=== PATIENT | female | born 1970 | race African-American/Black ===

== ENCOUNTER 2018-05-11 20:18 | Emergency (ER) | payer MEDICAID, OTHER ==
[~2018-05-11] VITALS: Ht 162.6 cm; Wt 95.7 kg
[2018-05-11 20:30] VITALS: BP 154/90
--- NOTE | 2018-05-11 20:30 | NUR ---
ED Nurse Note: patient walked in with family member fro home, complaining of paih in her right shoulder. per patient she fell on Saturday, and since today morning pain got worse. patient can barely lift her arm. AAO x4, skin is dry, intact, warm to touch. VSS at this time.
--- NOTE | 2018-05-11 20:35 | Emergency Room Report ---
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 Allergies: Coded Allergies: No Known Allergies (Unverified , 08/25/13) Patient History Past Medical History: see triage record Pertinent Family History: none Last Menstrual Period: 04/11/18 Reviewed Nursing Documentation: PMH: Agreed; PSxH: Agreed Nursing Documentation-PMH Past Medical History: No History, Except For Hx Hypertension: Yes Review of Systems All Other Systems: negative except mentioned in HPI Physical Exam Vital Signs Date Time Temp Pulse Resp B/P (MAP) Pulse Ox O2 Delivery O2 Flow Rate FiO2 05/11/18 20:19 98.2 80 19 154/90 99 Room Air Sp02 EP Interpretation: reviewed, normal General Appearance: well appearing, no apparent distress Head: normocephalic, atraumatic Eyes: bilateral eye PERRL, bilateral eye EOMI ENT: hearing grossly normal, normal pharynx Neck: supple Respiratory: lungs clear, no respiratory distress, no retraction Cardiovascular #1: regular rate, rhythm Gastrointestinal: non tender Musculoskeletal: other - Some tenderness palpable to the anterior right shoulder no obvious swelling or edema, patient has difficulty and pain with flexion of the shoulder Neurologic: alert, oriented x3, responsive Skin: normal color, no rash Lymphatic: no adenopathy Medical Decision Making Diagnostic Impression: Primary Impression: Shoulder sprain ER Course Given the patient's discomfort since Saturday x-ray imaging was obtained no obvious acute pathology is seen There is some questionable subacute versus chronic changes Patient is able to have close outpatient follow-up did not require any other splint Other X-Ray Diagnostic Results Other X-Ray Diagnostic Results : X-Ray ordered: Right shoulder # of Views/Limited Vs Complete: 3 View Indication: Pain EP Interpretation: Yes Interpretation: no dislocation, no soft tissue swelling, no fractures - Questionable changes laterally acromial Impression: No acute disease Electronically Signed by: Patito Cabrera DO Last Vital Signs Date Time Temp Pulse Resp B/P (MAP) Pulse Ox O2 Delivery O2 Flow Rate FiO2 05/11/18 20:30 98.2 19 154/90 99 Room Air 05/11/18 20:19 80 Status: improved Disposition: HOME, SELF-CARE Condition: Improved Scripts Ibuprofen* (MOTRIN*) 600 Mg Tablet 600 MG ORAL Q8H PRN for For Pain, #20 TAB 0 Refills Prov: Patito Cabrera DO 05/11/18 Additional Instructions: Patient is provided with the discharge instructions notified to follow up with primary doctor in the next 2-3 days otherwise return to the er with any worsening symptoms. Please note that this report is being documented using [employer] technology. This can lead to erroneous entry secondary to incorrect interpretation by the dictating instrument. Patito Cabrera DO May 11, 2018 20:35
[2018-05-11] MEDS ORDERED: IBUPROFEN600 MG ORAL (21:00)
--- NOTE | 2018-05-11 21:08 | NUR ---
applyedED Nurse Note: Rihgt arm sling was applied
[2018-05-11 21:12] VITALS: BP 145/78
--- NOTE | 2018-05-11 21:14 | NUR ---
ED Nurse Note: Pt cleared by health care Provider for discharge. DC instructions/prescription was given and explained to pt and verbalized understanding of teachings. All medical deviecs such as ID band removed. Pt is AAO x4, ambulatory and left with all personal belongings.
== END 2018-05-11 21:10 | disposition home or self-care (01) ==
LOC: EMR 20:55
DX: S43.401A Unspecified sprain of right shoulder joint, initial encounter (principal); W01.0XXA Fall on same level from slipping, tripping and stumbling without subsequent striking against object, initial encounter; Y92.89 Other specified places as the place of occurrence of the external cause; I10 Essential (primary) hypertension
CPT/HCPCS: 99283

== ENCOUNTER 2019-04-05 20:43 | Emergency (ER) | payer OTHER ==
[~2019-04-05] VITALS: Ht 162.6 cm; Wt 90.7 kg
[~2019-04-05 20:43] MED LIST: IBUPROFEN600 MG ORAL
[2019-04-05] MEDS ORDERED: HYDROCHLOROTHIA25 MG ORAL (21:36)
[2019-04-05] MEDS ORDERED: TERBINAFINE HC250 MG PO (21:36)
[2019-04-05 21:40] VITALS: BP 188/97
--- NOTE | 2019-04-05 21:40 | NUR ---
ED Nurse Note: Pt ambulated into ed from homoe with daughter. Pt CO rash on left flank that radiates to medial left abdomen. Rash resembles various sized blisters, pain 9/10. Pt reports recently taking lamasil for fungal infection of feet. PT denies allergies to medication, fever, n/v, body aches, chills recently. Pt reports chronic hx of HTN and denies taking BP medications today. BP upon assessment 188/96, ERMD aware. Awaiting ERMD at bedside. Urine collected, sent to lab.
--- NOTE | 2019-04-05 22:25 | NUR ---
ED Nurse Note: ERMD at bedside
--- NOTE | 2019-04-05 22:35 | NUR ---
ED Nurse Note: ERMD at bedside
[2019-04-05 22:38] VITALS: BP 179/91
--- NOTE | 2019-04-05 22:42 | NUR ---
ED Nurse Note: Awaiting discharge orders; pt assessed by 2 ERMDs and cleared for discharge on contact precautions and instructed to avoid populations of very young, very old, and unvaccinated.
[2019-04-05] MEDS ORDERED: ACYCLOVIR800 MG ORAL (22:52)
[2019-04-05] MEDS ORDERED: GABAPENTIN100 MG ORAL (22:52)
[2019-04-05 23:00] VITALS: BP 179/91
--- NOTE | 2019-04-05 23:00 | NUR ---
ER DISCHARGE NOTE: Patient is cleared to be discharged home per ERMD, pt is aox4, on room air, with stable vital signs. pt was given dc and prescription instructions, pt was able to verbalize understanding, pt id band removed. pt is able to ambulate with steady gait. pt took all belongings.
--- NOTE | 2019-04-06 02:45 | Emergency Room Report ---
History of Present Illness General Chief Complaint: Skin Rash/Abscess Source: Patient Present Illness HPI 49-year-old female presents ED for evaluation. The rash x1 week. Localized to left side abdomen radiating to the back. Burning, 7 out of 10. States prior to onset of rash there was burning discomfort to that area. Denies fevers or chills. Denies recent travel or sick contacts. No other aggravating relieving factors. Denies any other associated symptoms Allergies: Coded Allergies: No Known Allergies (Unverified , 08/25/13) Patient History Past Medical History: HTN Past Surgical History: none Pertinent Family History: none Social History: Denies: smoking, alcohol use, drug use Last Menstrual Period: 03/13/19 Now: No Immunizations: UTD Reviewed Nursing Documentation: PMH: Agreed; PSxH: Agreed Nursing Documentation-PMH Past Medical History: No History, Except For Hx Hypertension: Yes Review of Systems All Other Systems: negative except mentioned in HPI Physical Exam Vital Signs Date Time Temp Pulse Resp B/P (MAP) Pulse Ox O2 Delivery O2 Flow Rate FiO2 04/05/19 21:30 98.8 102 14 192/114 (140) 98 Room Air Sp02 EP Interpretation: reviewed, normal General Appearance: no apparent distress, alert, GCS 15, non-toxic Head: normocephalic, atraumatic Eyes: bilateral eye normal inspection, bilateral eye PERRL ENT: normal ENT inspection Neck: normal inspection Respiratory: normal inspection Cardiovascular #1: normal inspection Gastrointestinal: normal bowel sounds, non tender, soft, non-distended, no guarding, no rebound Rectal: deferred Genitourinary: no CVA tenderness Musculoskeletal: back normal, normal range of motion, gait/station normal, non- tender Neurologic: alert, motor strength/tone normal, oriented x3, sensory intact, responsive, speech normal Psychiatric: normal inspection Skin: other - diffuse vesicular rash noted to left abdomen radiating to the back. Not crossing midline. None erythematous base. No discharge Lymphatic: normal inspection Medical Decision Making Diagnostic Impression: Primary Impression: Shingles Qualified Codes: B02.8 - Zoster with other complications ER Course Hospital Course 49-year-old female presents to ED with rash to abdomen Differential diagnoses include: Cellulitis, dermatitis, insect bite, abscess Clinical course Patient placed on stretcher. After initial history, physical exam reveals a middle aged female in no acute distress. On exam there is a diffuse vesicular rash to the left lower abdomen radiating to the back. Nonerythematous base. No discharge. discussed findings with patient. Consistent with shingles. Patient appears well otherwise. Afebrile, nontoxic-appearing. Will discharge home with gabapentin, acyclovir. Contact precautions conveyed to patient. Safe for discharge for close outpatient follow-up. States she has a PMD Diagnosis - shingles stable and discharged to home with prescription for acyclovir, gabapentin. Instructed to followup with PMD. Instructed return to ED if symptoms recur or worsen Last Vital Signs Date Time Temp Pulse Resp B/P (MAP) Pulse Ox O2 Delivery O2 Flow Rate FiO2 04/05/19 23:00 98.8 82 14 179/91 98 Room Air Status: improved Disposition: HOME, SELF-CARE Condition: Stable Scripts Gabapentin* (GABAPENTIN*) 100 Mg Capsule 100 MG ORAL THREE TIMES A DAY for 5 Days, CAP Prov: Rylan Mauricio MD 04/05/19 Acyclovir* (ZOVIRAX*) 800 Mg Tablet 800 MG ORAL FIVE TIMES A DAY for 7 Days, TAB Prov: Rylan Mauricio MD 04/05/19 Referrals: [facility],REFERRING (PCP) Patient Instructions: Trung, [id number] Rylan Mauricio MD Apr 06, 2019 02:45
== END 2019-04-05 23:00 | disposition home or self-care (01) ==
LOC: EMR 23:00
DX: B02.8 Zoster with other complications (principal); I10 Essential (primary) hypertension
CPT/HCPCS: 99282